=== PATIENT | female | born 2000 | race Caucasian/White ===

== ENCOUNTER 2023-08-01 12:39 | Emergency (ER) | payer OTHER, SELFPAY ==
[2023-08-01] VITALS (11 sets, daily range): BP systolic 115–136; BP diastolic 57–73; PULSE 66–90; RESP 16–18; TEMP 36.1–37.1; O2SAT 98–100; BMI 34.4
--- NOTE | 2023-08-01 13:09 | ED_ITS ---
HPI - Female Genitourinary General Chief complaint: Vaginal Bleeding Stated complaint: heavy vaginal bleeding/pel. pain/N/ T-2/OB ref Time Seen by Provider: 08/01/23 12:54 History of Present Illness HPI Narrative: Patient here with giovana. Patient is . Complains of vaginal bleeding/heavy clots since yesterday. Patient is followed by digital marketing consultant at [facility] for PCOS. Is on progesterone continuously. Has not had a menstrual cycle in many years. Her 1st menses was at age [age] years old. She carried on her menstrual cycle for 2 years and then essentially no periods after that. Patient called her OBGYN office today and instructed to come here for evaluation. No dizziness no shortness of breath no syncope. She states typical control medication gives her migraine headaches. She has a headache today. It is 4/10. No distress. Related Data Allergies Allergy/AdvReac Type Severity Reaction Status Date / Time promethazine AdvReac Verified 08/01/23 12:49 sumatriptan AdvReac Verified 08/01/23 12:49 Review of Systems Review of Systems Narrative: GENERAL: negative chills, fatigue, malaise, fever, sweats. HEENT: negative sinus pain, ear pain, sore throat RESPIRATORY: negative dyspnea, cough CARDIOVASCULAR: negative chest pain, palpitations GASTROINTESTINAL: negative nausea, vomiting, abdominal pain : negative dysuria, frequency, hematuria, positive vaginal bleeding MUSCULOSKELETAL: negative muscle or bony pain SKIN: negative rash, skin lesions NEUROLOGIC: negative weakness, numbness, positive headache ROS Unobtainable: All systems reviewed & are unremarkable except as noted in HPI and below Patient History alcohol intake frequency: 0-2 drinks per day Substance Use Type: does not use Exam Narrative Exam Narrative: GENERAL: in no distress, not toxic not dyspneic HEAD: Normocephalic. EYES: Pupils equal round ENT: Mucous membranes moist. NECK: Trachea midline. CARDIOVASCULAR: Regular rate and rhythm RESPIRATORY: Clear to auscultation. Breath sounds equal bilaterally. No wheezes, rales, or rhonchi. GASTROINTESTINAL: Abdomen soft, mild suprapubic tenderness. No peritoneal signs. Bowel sounds present. No CVA tenderness. EXTREMITIES: No gross deformities. BACK: No flank tenderness. NEURO: AOx4. Clear speech no facial droop SKIN: Warm and dry PSYCH: Not anxious, is cooperative Initial Vital Signs Initial Vital Signs: Vital Signs Temperature 97.0 F L 08/01/23 12:43 Pulse Rate 88 08/01/23 12:43 Respiratory Rate 18 08/01/23 12:43 Blood Pressure 136/73 08/01/23 12:43 Pulse Oximetry 99 08/01/23 12:43 Oxygen Delivery Method Room Air 08/01/23 12:43 Course Orders Ordered: Discontinued Medications Diphenhydramine HCl (Diphenhydramine 50 Mg/Ml Vial) 25 mg IV NOW ONE Stop: 08/01/23 13:15 Last Admin: 08/01/23 13:23 Dose: 25 mg Documented By: SORIN Ketorolac Tromethamine (Ketorolac 30 Mg/Ml Vial) 15 mg IV NOW ONE Stop: 08/01/23 13:08 Last Admin: 08/01/23 13:19 Dose: 15 mg Documented By: SORIN Metoclopramide HCl (Metoclopramide 10 Mg/2 Ml Inj) 10 mg IV NOW ONE Stop: 08/01/23 13:08 Last Admin: 08/01/23 13:19 Dose: 10 mg Documented By: SORIN Vital Signs Vital signs: Vital Signs - 8 hr 08/01/23 12:43 08/01/23 13:11 08/01/23 13:12 Temperature 97.0 F L Pulse Rate 88 83 Respiratory Rate 18 Blood Pressure 136/73 117/60 Pulse Oximetry 99 98 Oxygen Delivery Method Room Air 08/01/23 13:12 08/01/23 13:25 08/01/23 13:25 Temperature Pulse Rate 90 77 Respiratory Rate Blood Pressure 117/58 L Pulse Oximetry 98 98 Oxygen Delivery Method 08/01/23 13:30 08/01/23 13:30 08/01/23 13:45 Temperature Pulse Rate 80 73 Respiratory Rate Blood Pressure 116/61 Pulse Oximetry 100 99 Oxygen Delivery Method 08/01/23 13:45 08/01/23 14:17 08/01/23 16:02 Temperature 98.7 F Pulse Rate 80 66 Respiratory Rate 18 16 Blood Pressure 119/62 115/57 L Pulse Oximetry 100 99 Oxygen Delivery Method Room Air Room Air MDM - Female Genitourinary Lab Data 08/01/23 13:05 08/01/23 13:05 Labs: Lab Results 08/01/23 Range/Units 13:05 WBC 8.9 (4.5-11.0) X10^3/uL RBC 5.00 (4.0-5.2) X10^6/uL Hgb 14.5 (12.0-16.0) g/dL Hct 43.4 (36-46) % MCV 86.8 (80-100) fL MCH 29.0 (26-34) PG MCHC 33.5 (30-36) % RDW 13.0 (11.6-14.8) % Plt Count 270 (150-400) X10^3/uL Neut % (Auto) 71.5 (50-75) % Lymph % (Auto) 20.9 L (25-40) % Weber % (Auto) 6.4 (3-14) % Eos % (Auto) 0.6 L (2-4) % Baso % (Auto) 0.6 (0-2) % Neut # (Auto) 6400 (3069-5324) /uL Lymph # (Auto) 1900 (2401-0526) /uL Weber # (Auto) 600 (0-900) /uL Eos # (Auto) 100 (0-450) /uL Baso # (Auto) 100 (0-100) /uL Sodium 141 (137-145) mmol/L Potassium 3.7 (3.4-5.1) mmol/L Chloride 104 (98-107) mmol/L Carbon Dioxide 23 (22-32) mmol/L BUN 8 (7-17) mg/dL Creatinine 0.66 (0.52-1.04) mg/dL Estimated GFR > 60 (>60) mL/min BUN/Creatinine Ratio 12.1 (6-22) Glucose 88 (70-100) mg/dL Calcium 9.5 (8.4-10.2) mg/dL Total Bilirubin 0.8 (0.2-1.3) mg/dL AST 25 (14-36) IU/L ALT 24 (<35) IU/L Alkaline Phosphatase 56 (38-126) U/L Total Protein 8.7 H (6.3-8.2) g/dL Albumin 5.1 H (3.5-5.0) g/dL Globulin 3.6 (1.7-4.1) g/dL Albumin/Globulin Ratio 1.4 (1.0-2.8) Point of Care Testing Test Results Negative Imaging Data US - UNIFORM PATROL POLICE OFFICER: Radiologist's Impression: [address] [address] Ultrasound Report Signed Patient: Melissa Coley MR#: [id number] : 2000 Acct:[id number] Age/Sex: 23 / F Date of Service: 08/01/23 Loc: ED Accession Number: [id number] Procedure: US pelvic complete Ordering Provider: Andre Hendrix MD PROCEDURE: US PELVIC COMPLETE INDICATIONS: PCOS; SUDDEN VAGINAL BLEEDING AFTER 6 YEARS OF AMENORRHEA TECHNIQUE: Real-time scanning was performed of the pelvic organs, with image documentation. Additional endovaginal scanning was necessary due to incomplete visualization of the adnexal and endometrial structures by transabdominal scanning. COMPARISON: None. FINDINGS: Uterus: Uterus is anteverted and normal in size at 5.7 x 2.6 x 3.8 cm. The myometrium is homogeneous. The endometrium measures 4.4 mm combined thickness. No focal mass Ovaries: Within normal limits bilaterally with less than 12 follicular cysts bilaterally. Other: No pathologic free abdominal or pelvic fluid. IMPRESSION: No acute/emergent process. We strive to produce accurate, complete, and clear reports of imaging services. To assist us in improving patient care, this report was composed using standard report templates and voice recognition software. Therefore, it may contain abnormal punctuation, insertions and/or omissions. Occasional wrong-word or sound-alike substitutions may occur. Though we review the report and make efforts to correct it, we do recommend that the report be read carefully in proper context to recognize any text inaccuracies. Dictated by: Kranthi Turner M.D. on 08/01/2023 at 16:22 Approved by: Kranthi Turner M.D. on 08/01/2023 at 16:25 [facility] Narrative Medical decision making narrative: Patient here with giovana. Patient is . Complains of vaginal bleeding/heavy clots since yesterday. Patient is followed by digital marketing consultant at [facility] for PCOS. Is on progesterone continuously. Has not had a menstrual cycle in many years. Her 1st menses was at age [age] years old. She carried on her menstrual cycle for 2 years and then essentially no periods after that. Patient called her OBGYN office today and instructed to come here for evaluation. No dizziness no shortness of breath no syncope. She states typical control medication gives her migraine headaches. She has a headache today. It is 4/10. No distress. Headache is frontal. This is typical of her migraine headache After history and exam CBC CMP pelvic ultrasound, Toradol, Reglan, test MDM CC: Vaginal bleed Complicating co-morbidities: PCOS Data collected from: Patient and fiancee Medical records reviewed: No previous visits for this complaint Differential considered: Includes but not limited to dysfunctional uterine bleeding. Breakthrough bleeding. Migraine headache, ovarian torsion/cyst Exam documented above, pertinent findings include: Lab Test results independently reviewed as above. Pertinent findings: Imaging studies independently reviewed: Ultrasound pelvis, no acute finding. Follicular cysts seen bilaterally. Consultations: None indicated at this time Treatments: Toradol Benadryl Reglan Re-evaluations: 4:50 p.m.. I apologized to patient and giovannae profusely for the delay in the ultrasound reading that just resulted. They are very understanding. Reviewed results and labs with patient as well. She will call her OBGYN doctor tomorrow for re-evaluation and possible medication changes. Return precautions reviewed with them. They desire discharge home. Discussion: Appropriate for discharge home. Exam and laboratory studies and imaging studies are reassuring at this time. Patient likely having dysfunctional uterine bleeding/breakthrough bleeding. She will need to follow up with her OBGYN doctor to change up control pills. Return precautions reviewed with her. Work note provided. Pain is controlled. She desires discharge home. Giovana at bedside Diagnosis: Dysfunctional uterine bleeding Discharge Plan Departure Patient Disposition: Home Clinical Impression: Dysfunctional uterine bleeding Instructions: DI for Abnormal Uterine Bleeding Activity Restrictions/Additional Instructions: Please call your OBGYN doctor provider tomorrow for re-evaluation and possible medication changes. Please review with your provider results that were done today. Return if worse if any questions or concerns. May continue Tylenol ibuprofen for pain. Your laboratory studies and ultrasound imaging studies are reassuring at this time Referrals: *Temp,ED* [Primary Care Provider] - Stand Alone Forms: Patient Portal/API, Work Release Note
[2023-08-01] MEDS: METOCLOPRAMIDE 10 MG/2 ML INJ IV (13:19)
[2023-08-01] MEDS: KETOROLAC 30 MG/ML VIAL 15 MG IV (13:19)
[2023-08-01] MEDS: diphenhydrAMINE 50 MG/ML VIAL 25 MG IV (13:23)
[2023-08-01 13:25] LABS: Add Manual Diff / Slide Review NO; Basophils Absolute Auto 100 /uL (0-100); Basophils Percent Auto 0.6 % (0-2); Eosinophils Absolute Auto 100 /uL (0-450); Eosinophils Percent Auto 0.6 % (2-4); Hematocrit 43.4 % (36-46); Hemoglobin 14.5 g/dL (12.0-16.0); Lymphocytes Absolute Auto 1900 /uL (1100-4500); Lymphocytes Percent Auto 20.9 % (25-40); Mean Corpuscular HGB Conc 33.5 % (30-36); Mean Corpuscular Volume 86.8 fL (80-100); Monocytes Absolute Auto 600 /uL (0-900); Monocytes Percent Auto 6.4 % (3-14); Neutrophils Absolute Auto 6400 /uL (1500-7000); Neutrophils Percent Auto 71.5 % (50-75); Platelet Count 270 X10^3/uL (150-400); White Blood Cell Count 8.9 X10^3/uL (4.5-11.0)
[2023-08-01 13:43] LABS: Alanine Aminotransferase 24 IU/L (<35); Albumin 5.1 g/dL (3.5-5.0); Albumin Globulin Ratio 1.4 (1.0-2.8); Alkaline Phosphatase 56 U/L (38-126); Aspartate Aminotransferase 25 IU/L (14-36); BUN Creatinine Ratio 12.1 (6-22); Bilirubin Total 0.8 mg/dL (0.2-1.3); Blood Urea Nitrogen 8 mg/dL (7-17); Calcium 9.5 mg/dL (8.4-10.2); Carbon Dioxide 23 mmol/L (22-32); Chloride 104 mmol/L (98-107); Estimated Glomerular Filt Rate > 60 mL/min (>60); Globulin 3.6 g/dL (1.7-4.1); Glucose 88 mg/dL (70-100); HEMOLYSIS 19 (0-50); Potassium 3.7 mmol/L (3.4-5.1); Sodium 141 mmol/L (137-145); Total Protein 8.7 g/dL (6.3-8.2)
== END 2023-08-01 17:00 | disposition home or self-care (01) ==
PROVIDERS: Emergency Provider Emergency Medicine
DX: N93.8 Other specified abnormal uterine and vaginal bleeding (principal)
CPT/HCPCS: 36415; 76830; 76856; 80053; 81025; 85025; 96374; 96375; 99284; J1200; J1885; J2765